=== PATIENT | male | born 1995 | race American Indian/Alaskan Native ===

== ENCOUNTER 2019-03-23 13:22 | Emergency (ER) | payer OTHER ==
[~2019-03-23] VITALS: Ht 190.5 cm; Wt 81.6 kg
[2019-03-23 13:22] VITALS: BP_SYST 130
--- NOTE | 2019-03-23 13:25 | NUR ---
BROUGHT BACK TO BED #5 AND TRIAGED. REPORT GIVEN TO ANNA
--- NOTE | 2019-03-23 13:26 | NUR ---
Patient is awake, alert, and oriented x4. Patient was playing basketball and hurt his left knee. No other complaints at this time.
--- NOTE | 2019-03-23 13:27 | NUR ---
ER RACHID Miller examining patient.
[2019-03-23] MEDS: IBUPROFEN 800 MG TABLET PO ONE (14:06)
[2019-03-23 14:30] VITALS: BP_SYST 124
== END 2019-03-23 14:30 | disposition home or self-care (01) ==
LOC: SED 13:22
DX: S83.92XA Sprain of unspecified site of left knee, initial encounter (principal); R03.0 Elevated blood-pressure reading, without diagnosis of hypertension; F17.210 Nicotine dependence, cigarettes, uncomplicated; F12.90 Cannabis use, unspecified, uncomplicated; Z71.6 Tobacco abuse counseling; X50.9XXA Other and unspecified overexertion or strenuous movements or postures, initial encounter; Y93.67 Activity, basketball; Y92.89 Other specified places as the place of occurrence of the external cause; Y99.8 Other external cause status
CPT/HCPCS: 73564; 99283